=== PATIENT | female | born 1955 | race Hispanic/Latino ===

== ENCOUNTER 2021-03-22 12:54 | Emergency (ER) | payer OTHER ==
[2021-03-22] MEDS ORDERED: dexAMETHasone 10 MG/ML VIAL ONE (16:48)
[2021-03-22] MEDS ORDERED: LIDOCAINE 4% PATCH ONE (16:49)
[2021-03-22 16:55] LABS: Urine Blood Trace-intact (Negative); Urine Glucose Negative (Negative); Urine Protein Negative (Negative); Urine Specific Gravity 1.015 (1.005-1.030)
[2021-03-22 17:10] LABS: Absolute Lymphocytes (CBC) 2.2 K/uL (0.7-4.9); Basophils % 0.9 % (0-1.3); Hematocrit 36.7 % (36.0-45.0); RBC Red Blood Cell Count 4.04 M/uL (3.86-4.86)
[2021-03-22 17:21] LABS: Albumin 3.9 g/dL (3.4-5.0); Bilirubin Total 0.6 mg/dL (0.2-1.0); Potassium 3.6 mmol/L (3.5-5.1); Protein, Total 7.1 g/dL (6.4-8.2)
--- NOTE | 2021-03-22 17:34 | RAD REPORT ---
EXAM DESCRIPTION: CT - Abdomen Pelvis Wo Contrast - 03/22/2021 5:07 pm CLINICAL HISTORY: Abdominal pain COMPARISON: None TECHNIQUE: Computed axial tomography of the abdomen and pelvis was obtained. IV and oral contrast we re not requested. All CT scans are performed using dose optimization technique as appropriate and may include automated exposure control or mA/KV adjustment according to patient size. FINDINGS: The evaluation of solid organs, vessels and bowel is limited secondary to the lack of con trast administration. The liver, spleen, pancreas, adrenals and left kidney appear grossly normal. 8 millimeter calculus within the lower pole parenchyma right kidney. No hydronephrosis. Adjacent carleen ical thinning probably secondary to prior inflammation. 3.3 centimeter right ovarian cyst without significant free fluid IMPRESSION: 3.3 centimeter right ovarian cyst without significant free fluid Nonobstructing right renal calculus
[2021-03-22 17:38] LABS: Urine Bacteria <20 /HPF (<20); Urine RBC <5 /HPF (NONE SEEN)
--- NOTE | 2021-03-22 17:52 | ER ---
Nurse's Notes [facility] Name: Kamini Coleman Age: 65 yrs Sex: Female : 1955 Arrival Date: 03/22/2021 Time: 12:57 Bed 28 Private MD: Diagnosis: Low back pain Presentation: 03/22 13:43 Chief complaint: Patient states: mid back pain that radiates down L leg that began 5-6 ss days ago. No known injury. Coronavirus screen: Vaccine status:. Ebola Screen: Patient denies exposure to infectious person. Patient denies travel to an Ebola-affected area in the 21 days before illness onset. Initial Sepsis Screen: Does the patient meet any 2 criteria? No. Patient's initial sepsis screen is negative. Does the patient have a suspected source of infection? No. Patient's initial sepsis screen is negative. Risk Assessment: Do you want to hurt yourself or someone else? Patient reports no desire to harm self or others. Onset of symptoms was March 15, 2021. 13:43 Method Of Arrival: Wheelchair ss 13:43 Acuity: SHU 4 ss Historical: - Allergies: 13:44 No Known Allergies; ss - Immunization history:: Client reports having NOT received the Covid vaccine. - Social history:: Smoking status: Patient denies any tobacco usage or history of. Screenin:35 Abuse screen: Denies threats or abuse. Denies injuries from another. Nutritional ld1 screening: No deficits noted. Tuberculosis screening: No symptoms or risk factors identified. Fall Risk None identified. Assessment: 16:00 General: Appears in no apparent distress. uncomfortable, Behavior is calm, cooperative, ld1 appropriate for age. 16:00 Pain: Complains of pain in low back area Pain does not radiate. Pain currently is 9 out ld1 of 10 on a pain scale. Quality of pain is described as throbbing, Pain began 2-3 days ago. Is continuous. Neuro: Level of Consciousness is awake, alert, obeys commands, Oriented to person, place, time, situation, Appropriate for age. Cardiovascular: Capillary refill < 3 seconds Patient's skin is warm and dry. Respiratory: Airway is patent Respiratory effort is even, unlabored, Respiratory pattern is regular, symmetrical. GI: Abdomen is flat, non-distended. : Reports urgency, urinary frequency, Denies burning with urination. EENT: No signs and/or symptoms were reported regarding the EENT system. Derm: No signs and/or symptoms reported regarding the dermatologic system. Musculoskeletal: Reports pain in low back area. 17:00 Reassessment: Patient appears in no apparent distress at this time. No changes from ld1 previously documented assessment. Patient and/or family updated on plan of care and expected duration. Pain level reassessed. 18:33 Reassessment: No changes from previously documented assessment. Patient and/or family ld1 updated on plan of care and expected duration. Pain level reassessed. Patient is alert, oriented x 3, equal unlabored respirations, skin warm/dry/pink. Vital Signs: 13:43 Resp 20; Weight 70.76 kg; Height 5 ft. 0 in. (152.40 cm); Pain 10/10; ss 13:44 BP 157 / 80; Pulse 64; Resp 17; Temp 97.9(TE); Pulse Ox 100% on R/A; ss 16:12 BP 163 / 71 RA Supine (auto/reg); Pulse 58; Resp 16 S; Pulse Ox 100% on R/A; Weight mb4 70.76 kg (M); Height 5 ft. 0 in. (152.40 cm) (M); Pain 10/10; 16:15 BP 148 / 77; Pulse 55; Resp 18; Pulse Ox 99% on R/A; ld1 16:45 BP 146 / 83; Pulse 54; Resp 18; Pulse Ox 99% on R/A; ld1 18:34 BP 138 / 80; Pulse 56; Resp 18; Pulse Ox 99% on R/A; ld1 16:12 Body Mass Index 30.47 (70.76 kg, 152.40 cm) 4 ED Course: 12:57 Patient arrived in ED. ds1 13:44 Triage completed. ss 13:44 Arm band placed on right wrist. ss 15:30 Patient has correct armband on for positive identification. Placed in gown. Bed in low ld1 position. Call light in reach. Side rails up X2. night assistant on. Pulse ox on. NIBP on. 15:30 No provider procedures requiring assistance completed. IV discontinued, intact, ld1 bleeding controlled, No redness/swelling at site. 16:04 Roman Menendez NP is PHCP. pm1 16:04 Homa Wells MD is Attending Physician. pm1 16:31 Dolores Rausch, RN is Primary Nurse. ld1 16:40 Inserted saline lock: 20 gauge in left antecubital area, using aseptic technique. ch5 16:57 CMP Sent. ch5 16:57 CBC with Diff Sent. ch5 16:57 Urine Microscopic Only Sent. ch5 17:06 CT Abd/Pelvis - Without Contrast In Process Unspecified. EDMS Administered Medications: 16:31 Drug: Lidoderm Patch 5 % (700 mg/patch) 1 patches Route: Topical; Site: affected area; ld1 16:31 Drug: Decadron (dexamethasone) 10 mg Route: IM; Site: left gluteus; ld1 16:31 Follow up: Response: No adverse reaction ld1 Outcome: 17:51 Discharge ordered by . pm1 18:36 Discharged to home ambulatory. ld1 18:36 Condition: stable 18:36 Discharge instructions given to patient, Instructed on discharge instructions, follow up and referral plans. medication usage, Demonstrated understanding of instructions, follow-up care, medications, Prescriptions given X 2. 18:36 Patient left the ED. ld1 Signatures: Dispatcher [employer] EDHI Katerin Neumann ds1 Era Pantoja RN RN ss Marinas, Patrick, NP [employer]OT AND SHOE REPAIRMAN pm1 Suzanne Bates mb4 Dolores Rausch, RN RN ld1 Tray Oneill RN RN ch5
--- NOTE | 2021-03-22 17:52 | EDPHYS ---
Physician Documentation [facility] Name: Kamini Coleman Age: 65 yrs Sex: Female : 1955 Arrival Date: 03/22/2021 Time: 12:57 Bed 28 Private MD: ED Physician Homa Wells HPI: 03/22 16:20 This 65 yrs old Female presents to ER via Wheelchair with complaints of Back pm1 Pain. 16:20 The patient presents with pain that is acute. The symptoms are located in the low back. pm1 Onset: The symptoms/episode began/occurred 2 day(s) ago. The pain radiates to the left leg. Associated signs and symptoms: Pertinent negatives: numbness, tingling, weakness. The problem was sustained Sleeping in a cot for the past two days. Modifying factors: The patient symptoms are alleviated by remaining still, the patient symptoms are aggravated by movement. Severity of symptoms: in the emergency department the symptoms are unchanged. The patient has experienced a previous episode, many years ago. The patient has not recently seen a physician. Patient reports low back pain for the past 2 days onset after sleeping on a cot instead of her bed. Historical: - Allergies: 13:44 No Known Allergies; ss - Immunization history:: Client reports having NOT received the Covid vaccine. - Social history:: Smoking status: Patient denies any tobacco usage or history of. ROS: 16:20 Constitutional: Negative for fever, chills, and weight loss, Cardiovascular: Negative pm1 for chest pain, palpitations, and edema, Respiratory: Negative for shortness of breath, cough, wheezing, and pleuritic chest pain. 16:20 : Negative for injury, bleeding, discharge, and swelling, MS/Extremity: Negative for injury and deformity, Skin: Negative for injury, rash, and discoloration, Neuro: Negative for headache, weakness, numbness, tingling, and seizure. 16:20 Back: Positive for of the low back area pain. 16:20 All other systems are negative. Exam: 16:20 Constitutional: This is a well developed, well nourished patient who is awake, alert, pm1 and in no acute distress. Head/Face: Normocephalic, atraumatic. 16:20 Skin: Warm, dry with normal turgor. Normal color with no rashes, no lesions, and no evidence of cellulitis. MS/ Extremity: Pulses equal, no cyanosis. Neurovascular intact. Full, normal range of motion. 16:20 Neck: Exam negative for acute changes, C-spine: vertebral tenderness, is not appreciated, ROM/movement: is normal, is supple, without pain. 16:20 Cardiovascular: Exam negative for acute changes, Rate: normal, Rhythm: regular, Pulses: no pulse deficits are appreciated. 16:20 Respiratory: Exam negative for acute changes, respiratory distress, shortness of breath. 16:20 Abdomen/GI: Exam negative for acute changes, Inspection: abdomen appears normal, Palpation: abdomen is soft and non-tender, in all quadrants. 16:20 Back: vertebral tenderness, is appreciated at L4 and L5. 16:20 Neuro: Exam negative for acute changes, Orientation: is normal, Mentation: is normal, Motor: is normal, moves all fours, strength is normal, strength is 5/5 in all extremities, Sensation: is normal, no obvious gross deficits. Vital Signs: 13:43 Resp 20; Weight 70.76 kg; Height 5 ft. 0 in. (152.40 cm); Pain 10/10; ss 13:44 BP 157 / 80; Pulse 64; Resp 17; Temp 97.9(TE); Pulse Ox 100% on R/A; ss 16:12 BP 163 / 71 RA Supine (auto/reg); Pulse 58; Resp 16 S; Pulse Ox 100% on R/A; Weight mb4 70.76 kg (M); Height 5 ft. 0 in. (152.40 cm) (M); Pain 10/10; 16:15 BP 148 / 77; Pulse 55; Resp 18; Pulse Ox 99% on R/A; ld1 16:45 BP 146 / 83; Pulse 54; Resp 18; Pulse Ox 99% on R/A; ld1 18:34 BP 138 / 80; Pulse 56; Resp 18; Pulse Ox 99% on R/A; ld1 16:12 Body Mass Index 30.47 (70.76 kg, 152.40 cm) mb4 MDM: 16:17 Patient medically screened. pm1 16:23 Data reviewed: vital signs. Data interpreted: Pulse oximetry: on room air is 100 %. pm1 Interpretation: normal. 16:23 ED course: Patient was offered NSAID and narcotic, but patient refused and requested pm1 steroid IM. Patient reports back injury many years ago and was given a steroid that helped her pain and would like to try it again. 16:39 ED course: Patient informed the nurse that she is having some dysuria and is worried pm1 about her kidney function. She would like lab work. Therefore will obtain labs and perform my IV contrast CT to evaluate her low back pain with dysuria. 17:51 Counseling: I had a detailed discussion with the patient and/or guardian regarding: the pm1 historical points, exam findings, and any diagnostic results supporting the discharge/admit diagnosis, lab results, radiology results, the need for outpatient follow up, to return to the emergency department if symptoms worsen or persist or if there are any questions or concerns that arise at home. ED course: Reports improvement in pain with medications given in the ER. Patient is also requesting a prescription for a muscle relaxant. 03/22 16:38 Order name: Urine Microscopic Only; Complete Time: 17:41 pm1 03/22 16:38 Order name: CBC with Diff; Complete Time: 17:41 pm1 03/22 16:38 Order name: CT Abd/Pelvis - Without Contrast; Complete Time: 17:41 pm1 03/22 16:38 Order name: CMP; Complete Time: 17:41 pm1 03/22 16:55 Order name: Urine Dipstick-Ancillary; Complete Time: 16:59 EDMS 03/22 16:38 Order name: Urine Dipstick-Ancillary (obtain specimen); Complete Time: 16:57 pm1 03/22 16:38 Order name: IV Saline Lock; Complete Time: 16:57 pm1 Administered Medications: 16:31 Drug: Lidoderm Patch 5 % (700 mg/patch) 1 patches Route: Topical; Site: affected area; ld1 16:31 Drug: Decadron (dexamethasone) 10 mg Route: IM; Site: left gluteus; ld1 16:31 Follow up: Response: No adverse reaction ld1 Disposition Summary: 03/22/21 17:51 Discharge Ordered Location: Home pm1 Problem: new pm1 Symptoms: have improved pm1 Condition: Stable pm1 Diagnosis - Low back pain pm1 Followup: pm1 - With: Emergency Department - When: As needed - Reason: Worsening of condition Followup: pm1 - With: Private Physician - When: 2 - 3 days - Reason: Recheck today's complaints, Continuance of care, Re-evaluation by your physician Discharge Instructions: - Discharge Summary Sheet pm1 - Acute Back Pain, Adult pm1 - Musculoskeletal Pain pm1 - Back Injury Prevention, [id number] pm1 Forms: - Medication Reconciliation Form pm1 - Thank You Letter pm1 - Antibiotic Education pm1 - Prescription Opioid Use pm1 Prescriptions: - Cyclobenzaprine 10 mg Oral Tablet - take 1 tablet by ORAL route every 8 hours As needed; 30 tablet; Refills: 0, pm1 Product Selection Permitted - Medrol (Baljit) 4 mg Oral Tablets, Dose Pack - take 1 tablet by ORAL route as directed - follow package instructions; 1 pm1 packet; Refills: 0, Product Selection Permitted Addendum: 03/23/2021 20:37 Co-signature as Attending Physician, Homa montemayor a2 Signatures: Dispatcher [employer] Era Courtney RN RN ss Roman Menendez, SUSTAINABILITY PROJECT MANAGER SUSTAINABILITY PROJECT MANAGER pm1 Homa Wells MD MD ma2 Dolores Rausch RN RN ld1 Corrections: (The following items were deleted from the chart) 03/22 16:40 16:18 Lumbar Spine 3 Views+[email or web address] ordered. EDMA EDMS
[2021-03-22 18:44] VITALS: TEMP 97.9
[2021-03-22 18:47] VITALS: O2SAT 99
[2021-03-22 18:50] VITALS: BP 138/80
== END 2021-03-22 18:36 | disposition home or self-care (01) ==
LOC: ER 12:54
DX: M54.5 Low back pain (principal)
CPT/HCPCS: 85025; 36415; 80053; 74176; 96372; 99284; J1100; 81003; 81015